=== PATIENT | female | born 1960 | race Caucasian/White ===

== ENCOUNTER → 2016-08-05 | Outpatient (CLI) | payer OTHER ==
[~2016-08-05] MED LIST: ALBU17IN INH; CIPR500T89 PO; DRIS50002 PO; FLAG500T PO; HYDR25TAB PO; MOBI15TA PO; OMEP40CA2 PO; PRIL20CA PO; ROBA750T4 PO; TENO50TA PO; TIZA2CAP3 PO; TRAM50TA2 PO; TYLE325T5 PO; ZOFR4TAB3 SL; ZOLO100T PO; flexeril; flexeril PO; tylenol #3 PO
--- NOTE | 2016-08-05 10:13 | REPMRS ---
Patient History The patient states she has not had a clinical breast exam in over a year. No known family history of cancer. Digital Mammo Screening Bilat: August 05, 2016 - Exam #: [id number] Bilateral CC and MLO view(s) were taken. Technologist: Kae Berg, Technologist Prior study comparison: June 17, 2015, digital mammo diagnostic bilateral performed at [facility]. October 03, 2008, diagnostic bilateral mammo, performed at [facility]. FINDINGS: There are scattered fibroglandular densities. There has been no change in the appearance of the mammogram from the prior studies. There is a mild amount of scattered fibroglandular density which is fairly symmetric. There is no interval development of dominant mass, architectural distortion, or clustered microcalcification suggestive of malignancy. ASSESSMENT: BI-RADS/ACR category 1 mammogram. Negative. Recommendation Routine screening mammogram in 1 year (for women over age 40). This mammogram was interpreted with the aid of an FDA-approved computer-aided dectection system. Electronically Signed By: Ferny Urbano MD 08/05/16 0141
== END ==
LOC: M RAD 08:27
PROVIDERS: ATTEND Nurse Practitioner Family
DX: Z12.31 Encounter for screening mammogram for malignant neoplasm of breast (principal)

== ENCOUNTER → 2016-08-11 | Outpatient (CLI) | payer OTHER ==
--- NOTE | 2016-08-11 14:20 | REP ---
Urinary tract sonogram: History: Chronic kidney disease, stage III. Comparison: No comparison sonography. Findings: Scanning at the level of the urinary bladder shows no abnormality. Renal cortical echogenicity pattern is normal bilaterally and contours are smooth. There is no evidence of hydronephrosis, cyst, mass, or calculus in either kidney. The right kidney measures 9.8 x 4.3 x 4.0 cm. Left renal dimensions are 10.3 x 4.6 x 4.0 cm. Impression: Normal urinary tract sonography. Signed by Tadeo Urbano MD 08/11/2016 02:11 P
== END ==
LOC: M RAD 10:03
PROVIDERS: ATTEND Internal Medicine Nephrology
DX: N18.3 Chronic kidney disease, stage 3 (moderate) (principal)

== ENCOUNTER 2016-09-30 20:42 | Emergency (ER) | payer OTHER ==
[~2016-09-30] VITALS: Ht 170.2 cm; Wt 74.4 kg
[2016-09-30 20:43] VITALS: BP 138/66
== END 2016-09-30 22:51 | disposition left against medical advice (07) ==
LOC: M ED 21:32
DX: M54.9 Dorsalgia, unspecified (principal); Z53.29 Procedure and treatment not carried out because of patient's decision for other reasons

== ENCOUNTER → 2016-11-18 | Outpatient (CLI) | payer OTHER ==
[2016-11-18 09:43] LABS: ALBUMIN 3.7 GM/DL (3.2-5.2); ALBUMIN/GLOBULIN RATIO 1.32 (1.00-1.93); BILIRUBIN,TOTAL 0.5 MG/DL (0.2-1.0); CALCIUM LEVEL 8.6 MG/DL (8.5-10.1); CREATININE FOR GFR 1.53 MG/DL (0.55-1.02); GLOMERULAR FILTRATION RATE 37.2 (>51); TOTAL PROTEIN 6.5 GM/DL (6.4-8.2); URIC ACID 6.3 MG/DL (2.6-6.0)
== END ==
LOC: M LAB 08:28
PROVIDERS: ATTEND Nurse Practitioner Family
DX: E11.9 Type 2 diabetes mellitus without complications (principal)

== ENCOUNTER → 2017-05-11 | Outpatient (CLI) | payer OTHER ==
--- NOTE | 2017-05-11 16:30 | REP ---
RIGHT WRIST, FOUR VIEWS: There is no evidence of an acute fracture, dislocation or intrinsic bone disease. IMPRESSION: No fracture or dislocation. Signed by Tristin Simmons MD 05/12/2017 04:31 P
== END ==
LOC: M RAD 15:48
PROVIDERS: ATTEND Physician Assistant
DX: M25.531 Pain in right wrist (principal)

== ENCOUNTER 2017-06-16 16:37 | Emergency (ER) | payer OTHER ==
[~2017-06-16] VITALS: Ht 170.2 cm; Wt 71.9 kg
[2017-06-16] MEDS ORDERED: MORPHINE 4 MG/ML 1ML SYRINGE IV ONE (18:00)
[2017-06-16] MEDS ORDERED: NS 1,000 ML IV ONE (18:00)
[2017-06-16] MEDS ORDERED: ONDANSETRON 4MG/2ML VIAL (J2405) IV ONE (18:00)
[2017-06-16 18:41] LABS: BASO % 0.3 % (0.0-1.0); EOS # 0.1 10^3/uL (0.0-0.50); EOS % 0.9 % (0.0-3.0); IMMATURE GRANULOCYTE % 0.4 % (0-0); LYMPH # 1.1 10^3/uL (1.5-4.5); LYMPH % 12.5 % (24.0-44.0); MEAN CORPUSCULAR HEMOGLOBIN 31.2 pg (27.0-33.0); MEAN CORPUSCULAR HGB CONC 34.6 g/dl (32.0-36.5); MEAN CORPUSCULAR VOLUME 90.1 fl (80.0-96.0); MONO # 0.6 10^3/uL (0.0-0.8); MONO % 6.3 % (0.0-5.0); NEUTROPHILS # 7.1 10^3/uL (1.8-7.7); NEUTROPHILS % 79.6 % (36.0-66.0); PLATELET COUNT, AUTOMATED 222 10^3/uL (150-450); RED CELL DISTRIBUTION WIDTH 13.4 % (11.5-14.5)
[2017-06-16 19:54] LABS: ALBUMIN/GLOBULIN RATIO 1.29 (1.00-1.93); ALKALINE PHOSPHATASE 87 U/L (45-117); ALT/SGPT 20 U/L (12-78); AMYLASE 62 U/L (25-115); ANION GAP 5 MEQ/L (8-16); AST/SGOT 11 U/L (7-37); BILIRUBIN,DIRECT < 0.1 MG/DL (0.0-0.2); BILIRUBIN,TOTAL 0.3 MG/DL (0.2-1.0); BLOOD UREA NITROGEN 21 MG/DL (7-18); CALCIUM LEVEL 8.9 MG/DL (8.5-10.1); CARBON DIOXIDE LEVEL 29 MEQ/L (21-32); CHLORIDE LEVEL 108 MEQ/L (98-107); CREATININE FOR GFR 1.18 MG/DL (0.55-1.02); GLOMERULAR FILTRATION RATE 50.1 (>51); GLUCOSE, FASTING 92 MG/DL (70-105); POTASSIUM SERUM 4.2 MEQ/L (3.5-5.1); SODIUM LEVEL 142 MEQ/L (136-145); TOTAL PROTEIN 7.1 GM/DL (6.4-8.2)
[2017-06-16] MEDS ORDERED: ISOVUE-370 76% 100ML VIAL (Q9967) As Ordered ONE (19:58)
[2017-06-16 21:59] VITALS: BP 136/58
--- NOTE | 2017-06-16 22:20 | REPUSA ---
CLINICAL HISTORY: Left lower quadrant pain. TECHNIQUE: CT abdomen and pelvis following administration of IV contrast. Total DLP 498 mGy*cm. COMPARISON: October 02, 2014. CT ABDOMEN WITH CONTRAST: Lung bases: Bibasilar dependent atelectasis. . Liver: 19.8 cm length. No intrahepatic ductal dilation. Small lesions of the right hepatic dome measu ring up to 11 mm, with peripheral enhancement most consistent with hemangiomas. Gallbladder: Normally distended. Pancreas: No pancreatic duct dilation. Bowel loops: Nondistended. Spleen: 13 cm splenomegaly. Adrenals: Normal size. Kidneys: No hydronephrosis. 9 mm left upper pole cyst. Aorta: Normal caliber. Peritoneum: No free air. Lumbar spine: Degenerative spondylotic changes at L5-S1. CT PELVIS WITH CONTRAST: Colon: Nondistended, which may artifactually produce the appearance of wall thickening. However, no d iverticulitis is identified. Appendix: Normal appendix is seen. Bladder: Normally distended. Uterus: Hysterectomy. Peritoneum: No fluid. Skeleton: No acute findings. IMPRESSION: 1. The descending and sigmoid colon are decompressed, which may artifactually produce the appearance of minimal wall thickening. However, mild left-sided colitis is suspected in a patient with left lowe r quadrant pain. There is no specific evidence of diverticulitis. There is no fluid collection or abs cess formation.. 2. Mild hepatosplenomegaly. Correlate with hepatic enzymes.
[2017-06-16] MEDS ORDERED: CIPROFLOXACIN 500 MG TAB PO ONE (22:30)
[2017-06-16] MEDS ORDERED: metroNIDAZOLE (FLAGYL) 500 MG TAB PO ONE (22:30)
[2017-06-16] MEDS ORDERED: NORCO 5/325MG TABLET (BULK FOR ED) PO ONE (22:30)
[2017-06-16] MEDS ORDERED: NORCOTAB PO (22:32)
[2017-06-16] MEDS ORDERED: ZOFR4TAB3 PO (22:32)
[2017-06-16] MEDS ORDERED: FLAG500T PO (22:32)
[2017-06-16] MEDS ORDERED: CIPR-249 PO (22:32)
--- NOTE | 2017-06-17 07:23 | ED PDOC ---
Post-Departure Follow-Up radiology report faxed to PCP, Kirti Goss MD Jun 17, 2017 07:23
== END 2017-06-16 22:56 | disposition home or self-care (01) ==
LOC: M ED 16:37
DX: E86.0 Dehydration (principal); K52.9 Noninfective gastroenteritis and colitis, unspecified; R16.2 Hepatomegaly with splenomegaly, not elsewhere classified; I10 Essential (primary) hypertension; F41.9 Anxiety disorder, unspecified; F17.200 Nicotine dependence, unspecified, uncomplicated; Z79.899 Other long term (current) drug therapy; Z88.6 Allergy status to analgesic agent; Z88.5 Allergy status to narcotic agent; Z91.02 Food additives allergy status
CPT/HCPCS: 74177; 80048; 80076; 81001; 82150; 83690; 85025; 96361; 96374; 96375; 99284; J2405; Q9967

== ENCOUNTER → 2017-07-16 | Outpatient (REF) | payer OTHER ==
[2017-07-16 16:28] LABS: MEAN CORPUSCULAR HEMOGLOBIN 31.1 pg (27.0-33.0); MEAN CORPUSCULAR HGB CONC 34.2 g/dl (32.0-36.5); MEAN CORPUSCULAR VOLUME 90.7 fl (80.0-96.0); PLATELET COUNT, AUTOMATED 201 10^3/uL (150-450); RED CELL DISTRIBUTION WIDTH 13.4 % (11.5-14.5); WHITE BLOOD COUNT 7.3 10^3/uL (4.0-10.0)
[2017-07-16 17:36] LABS: ESTIMATED AVERAGE GLUCOSE 117 MG/DL (60-110)
[2017-07-16 18:00] LABS: ALBUMIN 4.1 GM/DL (3.2-5.2); ALBUMIN/GLOBULIN RATIO 1.41 (1.00-1.93); ALKALINE PHOSPHATASE 79 U/L (45-117); ALT/SGPT 16 U/L (12-78); ANION GAP 5 MEQ/L (8-16); AST/SGOT 9 U/L (7-37); BILIRUBIN,TOTAL 0.4 MG/DL (0.2-1.0); BLOOD UREA NITROGEN 22 MG/DL (7-18); CALCIUM LEVEL 9.2 MG/DL (8.5-10.1); CARBON DIOXIDE LEVEL 33 MEQ/L (21-32); CHLORIDE LEVEL 105 MEQ/L (98-107); CHOLESTEROL LEVEL 209 MG/DL (<200); CREATININE FOR GFR 1.26 MG/DL (0.55-1.02); GLOMERULAR FILTRATION RATE 46.4 (>51); GLUCOSE, FASTING 104 MG/DL (70-105); POTASSIUM SERUM 4.5 MEQ/L (3.5-5.1); SODIUM LEVEL 143 MEQ/L (136-145); TRIGLYCERIDES LEVEL 138 MG/DL (<150); URIC ACID 5.1 MG/DL (2.6-6.0)
== END ==
LOC: M SFHCCLAY 09:15
DX: I10 Essential (primary) hypertension (principal); E11.9 Type 2 diabetes mellitus without complications; E78.4 Other hyperlipidemia; M10.9 Gout, unspecified; E55.9 Vitamin D deficiency, unspecified

== ENCOUNTER 2017-09-20 05:53 | Emergency (ER) | payer OTHER ==
[2017-09-20] MEDS: AUGMENTIN 875 MG TAB PO (07:15)
[2017-09-20] MEDS: ADACEL/BOOSTRIX VACCINE (DIPHTH/PERTUSS/ACELL/TETANUS)0.5ML SYR (90715) IM (07:15)
== END 2017-09-20 07:45 | disposition home or self-care (01) ==
LOC: M ED 05:53
DX: S51.831A Puncture wound without foreign body of right forearm, initial encounter (principal); W55.01XA Bitten by cat, initial encounter; Y92.018 Other place in single-family (private) house as the place of occurrence of the external cause; I10 Essential (primary) hypertension; K21.9 Gastro-esophageal reflux disease without esophagitis; F41.9 Anxiety disorder, unspecified; F33.9 Major depressive disorder, recurrent, unspecified; Z79.899 Other long term (current) drug therapy; Z88.5 Allergy status to narcotic agent; Z88.8 Allergy status to other drugs, medicaments and biological substances; Z91.048 Other nonmedicinal substance allergy status; F17.210 Nicotine dependence, cigarettes, uncomplicated
CPT/HCPCS: 90715

== ENCOUNTER 2017-11-04 16:05 | Emergency (ER) | payer OTHER ==
[2017-11-04] MEDS: PERCOCET 5MG/325MG TAB PO (16:43)
== END 2017-11-04 17:52 | disposition home or self-care (01) ==
LOC: M ED 16:05
DX: M51.26 Other intervertebral disc displacement, lumbar region (principal); M25.78 Osteophyte, vertebrae; I10 Essential (primary) hypertension; K21.9 Gastro-esophageal reflux disease without esophagitis; F41.9 Anxiety disorder, unspecified; F32.9 Major depressive disorder, single episode, unspecified; J43.9 Emphysema, unspecified; F17.200 Nicotine dependence, unspecified, uncomplicated; Z79.899 Other long term (current) drug therapy; Z88.6 Allergy status to analgesic agent; Z91.02 Food additives allergy status
CPT/HCPCS: 72131

== ENCOUNTER → 2017-11-08 | Outpatient (CLI) | payer OTHER | LOC: M RAD 14:03 | DX: J84.10 Pulmonary fibrosis, unspecified (principal) | CPT/HCPCS: 71250 ==

== ENCOUNTER → 2018-08-02 | Outpatient (REF) | payer MEDICARE, OTHER ==
[~2018-08-02] MED LIST changes: +ALLO100T PO; +AUGM875T28 PO; +CIPR-249 PO; -DRIS50002 PO; +DRIS50003 PO; +IBUP-1022 PO; +NORCOTAB PO; +PANT40TA3 PO; +PERC5TAB12 PO; +TIZA2CAP PO; -TIZA2CAP3 PO; +ZOFR4TAB14 PO; +ZOFR4TAB14 SL; -ZOFR4TAB3 SL
[2018-08-02 17:31] LABS: ALBUMIN 4.2 GM/DL (3.2-5.2); BILIRUBIN,TOTAL 0.4 MG/DL (0.2-1.0); CALCIUM LEVEL 9.1 MG/DL (8.5-10.1); CHOLESTEROL RISK RATIO 4.395 (<5); CREATININE FOR GFR 1.35 MG/DL (0.55-1.30); GLOMERULAR FILTRATION RATE 42.7 (>51); POTASSIUM SERUM 4.3 MEQ/L (3.5-5.1); TOTAL PROTEIN 6.9 GM/DL (6.4-8.2); URIC ACID 6.9 MG/DL (2.6-6.0)
[2018-08-02 17:32] LABS: HEMOGLOBIN A1c 5.8 %
[2018-08-02 17:35] LABS: TOTAL 25(OH) VITAMIN D 54.3 NG/ML (30.0-100.0)
[2018-08-02 19:26] LABS: HEMOGLOBIN 14.8 g/dl (12.0-15.5); MEAN CORPUSCULAR HEMOGLOBIN 31.4 pg (27.0-33.0); MEAN CORPUSCULAR HGB CONC 34.4 g/dl (32.0-36.5); MEAN CORPUSCULAR VOLUME 91.3 fl (80.0-96.0); PLATELET COUNT, AUTOMATED 235 10^3/uL (150-450); RED BLOOD COUNT 4.71 10^6/uL (4.00-5.40); WHITE BLOOD COUNT 8.7 10^3/uL (4.0-10.0)
== END ==
LOC: M SFHCCLAY 11:46
PROVIDERS: ATTEND Nurse Practitioner Family
DX: N39.0 Urinary tract infection, site not specified (principal); K21.9 Gastro-esophageal reflux disease without esophagitis; I10 Essential (primary) hypertension; E11.9 Type 2 diabetes mellitus without complications; E78.49 Other hyperlipidemia; M10.9 Gout, unspecified; E55.9 Vitamin D deficiency, unspecified
CPT/HCPCS: 80053; 80061; 81002; 82306; 83036; 84550; 85027; 87086; G0463

== ENCOUNTER 2018-10-24 15:52 | Emergency (ER) | payer MEDICARE, OTHER ==
[~2018-10-24] VITALS: Ht 170.2 cm; Wt 72.7 kg
[~2018-10-24 15:52] MED LIST changes: +HYDR-2541 PO; +HYDR-3715 PO; -HYDR25TAB PO; -NORCOTAB PO
[2018-10-24 15:53] VITALS: BP 187/77
[2018-10-24 16:42] LABS: BASO % 0.4 % (0.0-1.0); EOS # 0.1 10^3/uL (0.0-0.50); EOS % 0.9 % (0.0-3.0); HEMATOCRIT 38.4 % (36.0-47.0); HEMOGLOBIN 13.3 g/dl (12.0-15.5); LYMPH # 0.6 10^3/uL (1.5-4.5); LYMPH % 10.7 % (24.0-44.0); MEAN CORPUSCULAR HEMOGLOBIN 31.9 pg (27.0-33.0); MEAN CORPUSCULAR HGB CONC 34.6 g/dl (32.0-36.5); MEAN CORPUSCULAR VOLUME 92.1 fl (80.0-96.0); MONO # 0.4 10^3/uL (0.0-0.8); MONO % 7.3 % (0.0-5.0); NEUTROPHILS # 4.4 10^3/uL (1.8-7.7); NEUTROPHILS % 80.3 % (36.0-66.0); PLATELET COUNT, AUTOMATED 179 10^3/uL (150-450); RED BLOOD COUNT 4.17 10^6/uL (4.00-5.40); WHITE BLOOD COUNT 5.5 10^3/uL (4.0-10.0)
[2018-10-24 17:10] LABS: ALBUMIN 3.9 GM/DL (3.2-5.2); ALT/SGPT 21 U/L (12-78); BILIRUBIN,DIRECT < 0.1 MG/DL (0.0-0.2); BILIRUBIN,TOTAL 0.3 MG/DL (0.2-1.0); BLOOD UREA NITROGEN 18 MG/DL (7-18); CALCIUM LEVEL 8.6 MG/DL (8.5-10.1); CARBON DIOXIDE LEVEL 28 MEQ/L (21-32); CHLORIDE LEVEL 106 MEQ/L (98-107); CREATININE FOR GFR 1.59 MG/DL (0.55-1.30); GLOMERULAR FILTRATION RATE 35.4 (>51); GLUCOSE, FASTING 149 MG/DL (70-100); LIPASE 167 U/L (73-393); SODIUM LEVEL 140 MEQ/L (136-145); TOTAL PROTEIN 7.2 GM/DL (6.4-8.2)
[2018-10-25] MEDS ORDERED: FLAG500T PO (13:15)
== END 2018-10-24 19:03 | disposition left against medical advice (07) ==
LOC: M ED 15:52
DX: Z53.21 Procedure and treatment not carried out due to patient leaving prior to being seen by health care provider (principal)

== ENCOUNTER 2018-10-25 09:29 | Emergency (ER) | payer MEDICARE, OTHER ==
[~2018-10-25] VITALS: Ht 170.2 cm; Wt 74.0 kg
[2018-10-25] MEDS ORDERED: ACETAMINOPHEN TAB 650MG DOSE (2X325MG) PO ONE (10:30)
[2018-10-25 11:17] LABS: HEMATOCRIT 38.9 % (36.0-47.0); MEAN CORPUSCULAR HEMOGLOBIN 31.9 pg (27.0-33.0); MEAN CORPUSCULAR HGB CONC 33.4 g/dl (32.0-36.5); MEAN CORPUSCULAR VOLUME 95.6 fl (80.0-96.0); PLATELET COUNT, AUTOMATED 159 10^3/uL (150-450); RED BLOOD COUNT 4.07 10^6/uL (4.00-5.40); WHITE BLOOD COUNT 4.6 10^3/uL (4.0-10.0)
[2018-10-25 11:38] LABS: CALCIUM LEVEL 8.4 MG/DL (8.5-10.1); CREATININE FOR GFR 1.48 MG/DL (0.55-1.30); GLOMERULAR FILTRATION RATE 38.4 (>51); POTASSIUM SERUM 4.8 MEQ/L (3.5-5.1)
--- NOTE | 2018-10-25 11:38 | REP ---
Pelvic ultrasound, transabdominal imaging: Comparison is 06/20/2013. The the patient has a hysterectomy and left oophorectomy. There is no identifiable uterus and there is no identifiable left ovary, compatible with the clinical history. The right ovary measures 3.7 x 3.5 x 1.7 cm and is normal size. There is no dominant right ovarian mass or cyst. There is right ovarian vascular flow. The Doppler resistive index of the right ovarian parenchymal arteries is 0.62. There is no pelvic free fluid. Impression: Hysterectomy and left oophorectomy. The right ovary is unremarkable. There is no free fluid or mass. Electronically Signed by Tristin Phan MD 10/25/2018 11:30 A
[2018-10-25] MEDS ORDERED: traMADol 50 MG TAB PO ONE (12:00)
[2018-10-25] MEDS ORDERED: ISOVUE-370 76% 100ML VIAL (Q9967) As Ordered ONE (12:17)
[2018-10-25] MEDS ORDERED: ONDANSETRON 4MG/2ML VIAL (J2405) IV ONE (12:45)
[2018-10-25] MEDS ORDERED: metroNIDAZOLE (FLAGYL) 500 MG TAB PO ONE (13:00)
[2018-10-25] MEDS ORDERED: FLAG500T PO (13:15)
[2018-10-25 13:23] VITALS: BP 128/60
--- NOTE | 2018-10-25 13:31 | REP ---
CT study of the abdomen and pelvis with IV but without oral contrast: History: Right lower quadrant pain. Comparison CT study: June 16, 2017. CT contrast dose: 100 mL of intravenous Isovue 370. 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 The liver and spleen are at the upper range of normal in size unchanged. There are two small benign hemangiomas in the right lobe of the liver unchanged from the 2017 study. The largest of these measures 13 mm in greatest diameter. No significant focal liver lesion is appreciated. The gallbladder and pancreas are unremarkable. No retroperitoneal mass or adenopathy is seen. There is a small 1 cm cyst in the mid position of the left kidney unchanged. Small and large intestinal bowel loops are normal in the upper abdomen. Pelvic images demonstrate a normal appendix. There is no evidence of diverticulosis or diverticulitis or other inflammatory change. No abdominal wall defect is seen. Urinary bladder is largely empty but appears intact. The uterus is surgically absent. No bony abnormality is seen. Impression: No acute intra-abdominal abnormality. Borderline liver spleen size unchanged. Normal appendix. Small left renal cyst. Two benign stable small hemangiomas of the liver. Post hysterectomy. Otherwise negative. Electronically Signed by Tadeo Urbano MD 10/25/2018 08:29 P
[2018-10-25 14:01] LABS: CHLAMYDIA DNA AMPLIFICATION NEGATIVE (NEGATIVE); GC DNA AMPLIFICATION NEGATIVE (NEGATIVE)
== END 2018-10-25 13:31 | disposition home or self-care (01) ==
LOC: M ED 09:29
DX: N76.0 Acute vaginitis (principal); N28.1 Cyst of kidney, acquired; E11.9 Type 2 diabetes mellitus without complications; I10 Essential (primary) hypertension; N80.9 Endometriosis, unspecified; D25.9 Leiomyoma of uterus, unspecified; N83.299 Other ovarian cyst, unspecified side; M51.9 Unspecified thoracic, thoracolumbar and lumbosacral intervertebral disc disorder; M10.9 Gout, unspecified; K57.92 Diverticulitis of intestine, part unspecified, without perforation or abscess without bleeding; Z72.0 Tobacco use; Z79.899 Other long term (current) drug therapy; Z91.02 Food additives allergy status; Z88.8 Allergy status to other drugs, medicaments and biological substances
CPT/HCPCS: 36415; 74177; 76856; 80048; 81001; 85027; 87210; 87491; 87591; 96374; 99284; J2405; Q9967

== ENCOUNTER 2019-01-10 12:06 | Emergency (ER) | payer MEDICARE, MEDICAID ==
[~2019-01-10] VITALS: Ht 170.2 cm; Wt 75.0 kg
--- NOTE | 2019-01-10 13:16 | REP ---
Clinical: Left foot pain Technique: AP, lateral, bilateral oblique views left foot . Findings: The osseous structures and joint spaces are intact and normal. There is no evidence for acute fracture or dislocation. Surrounding soft tissues are unremarkable. No subcutaneous emphysema or radiodense foreign body. Impression: Age-appropriate left foot series. No acute fracture or dislocation. Electronically Signed by Josesito Duke MD 01/10/2019 01:07 P
[2019-01-10] MEDS ORDERED: traMADol 50 MG TAB PO ONE (13:45)
--- NOTE | 2019-01-10 15:08 | REP ---
Clinical: Painful plantar arch/heel mass. Technique: Real time price scale ultrasound examination using high frequency transducer. Findings: Directed ultrasound examination of the left foot along the plantar side at the site of maximal tenderness demonstrates suggesting thickening of the plantar aponeurosis approaching the attachment to the calcaneus. No associated mass or fluid collection noted. Impression: Area of pain corresponds to thickening of the plantar aponeurosis Electronically Signed by Josesito Duke MD 01/10/2019 03:00 P
[2019-01-10 15:28] VITALS: BP 148/59
--- NOTE | 2019-01-16 15:32 | ED PDOC ---
Post-Departure Follow-Up dr rico and marcio fabian faxed formal report of us of foot for fu Melissa Stephens MD Jan 16, 2019 15:32
== END 2019-01-10 15:38 | disposition home or self-care (01) ==
LOC: M ED 12:06 → CANBEDREQ 13:45 → M ED 15:38
DX: M72.2 Plantar fascial fibromatosis (principal); E11.9 Type 2 diabetes mellitus without complications; I12.9 Hypertensive chronic kidney disease with stage 1 through stage 4 chronic kidney disease, or unspecified chronic kidney disease; N18.3 Chronic kidney disease, stage 3 (moderate); F33.9 Major depressive disorder, recurrent, unspecified; K21.9 Gastro-esophageal reflux disease without esophagitis; M10.9 Gout, unspecified; Z91.018 Allergy to other foods; Z88.8 Allergy status to other drugs, medicaments and biological substances

== ENCOUNTER → 2019-02-08 | Outpatient (REF) | payer MEDICARE, OTHER ==
[2019-02-08 16:46] LABS: ALBUMIN 4.3 GM/DL (3.2-5.2); BILIRUBIN,TOTAL 0.4 MG/DL (0.2-1.0); CALCIUM LEVEL 9.3 MG/DL (8.5-10.1); CHOLESTEROL RISK RATIO 5.437 (<5); CREATININE FOR GFR 1.36 MG/DL (0.55-1.30); GLOMERULAR FILTRATION RATE 42.4 (>51); POTASSIUM SERUM 3.9 MEQ/L (3.5-5.1); TOTAL PROTEIN 7.5 GM/DL (6.4-8.2); URIC ACID 6.4 MG/DL (2.6-6.0)
[2019-02-08 16:55] LABS: TOTAL 25(OH) VITAMIN D 35.4 NG/ML (30.0-100.0)
[2019-02-08 17:01] LABS: HEMOGLOBIN A1c 6.1 %
[2019-02-08 17:17] LABS: MALB URINE SIEMENS 13.9 MG/L; MAU/CREAT RATIO 8.4 MCG/MG (0.0-30.0)
== END ==
LOC: M SFHCCLAY 11:58
PROVIDERS: ATTEND Nurse Practitioner Family
DX: E11.9 Type 2 diabetes mellitus without complications (principal); E78.49 Other hyperlipidemia; M10.9 Gout, unspecified; E55.9 Vitamin D deficiency, unspecified; I10 Essential (primary) hypertension

== ENCOUNTER → 2019-08-22 | Outpatient (REF) | payer MEDICARE, MEDICAID ==
[~2019-08-22] MED LIST changes: -OMEP40CA2 PO; +OMEP40CA97 PO
[2019-08-22 13:08] LABS: HEMOGLOBIN A1c 5.9 %
[2019-08-22 13:37] LABS: BILIRUBIN,TOTAL 0.3 MG/DL (0.2-1.0); CALCIUM LEVEL 9.1 MG/DL (8.8-10.2); CHOLESTEROL RISK RATIO 5.104 (<5); CREATININE FOR GFR 1.4 MG/DL (0.55-1.30); GLOMERULAR FILTRATION RATE 40.8 (>45); POTASSIUM SERUM 4.6 MEQ/L (3.5-5.1); TOTAL 25(OH) VITAMIN D 35.6 NG/ML (30.0-100.0); TOTAL PROTEIN 6.9 GM/DL (6.4-8.2); URIC ACID 7.6 MG/DL (2.6-6.0)
[2019-08-22 13:46] LABS: MALB URINE SIEMENS 10.4 MG/L; MAU/CREAT RATIO 7.5 MCG/MG (0.0-30.0)
== END ==
LOC: M SFHCCLAY 08:16
PROVIDERS: ATTEND Nurse Practitioner Family
DX: E11.8 Type 2 diabetes mellitus with unspecified complications (principal); E78.5 Hyperlipidemia, unspecified; M10.9 Gout, unspecified; E55.9 Vitamin D deficiency, unspecified